=== PATIENT | male | born 1995 | race Caucasian/White ===

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

== ENCOUNTER → 2021-06-09 | Outpatient (REF) | payer OTHER ==
[2021-06-09 15:59] LABS: BASO % 0.4 % (0.0-1.0); EOS # 0.1 10^3/uL (0.0-0.5); EOS % 2.4 % (0.0-3.0); HEMATOCRIT 44.6 % (42.0-52.0); HEMOGLOBIN 13.4 g/dl (13.5-17.5); LYMPH # 1.7 10^3/uL (1.5-5.0); LYMPH % 31.5 % (24.0-44.0); MEAN CORPUSCULAR HEMOGLOBIN 19.5 pg (27.0-33.0); MEAN CORPUSCULAR VOLUME 64.8 fl (80.0-96.0); MONO # 0.5 10^3/uL (0.0-0.8); MONO % 9.4 % (2.0-8.0); NEUTROPHILS # 3.1 10^3/uL (1.5-8.5); NEUTROPHILS % 55.9 % (36.0-66.0); PLATELET COUNT, AUTOMATED 263 10^3/uL (150-450); RED BLOOD COUNT 6.88 10^6/uL (4.30-6.10); WHITE BLOOD COUNT 5.5 10^3/uL (4.0-10.0)
[2021-06-09 16:32] LABS: ALBUMIN 4.2 GM/DL (3.2-5.2); ALT/SGPT 136 U/L (12-78); BILIRUBIN,TOTAL 0.8 MG/DL (0.2-1.0); BLOOD UREA NITROGEN 12 MG/DL (7-18); CALCIUM LEVEL 9.2 MG/DL (8.5-10.1); CARBON DIOXIDE LEVEL 28 MEQ/L (21-32); CHLORIDE LEVEL 104 MEQ/L (98-107); CHOLESTEROL LEVEL 208 MG/DL (<200); CHOLESTEROL RISK RATIO 7.703 (<5); CREATININE FOR GFR 0.77 MG/DL (0.70-1.30); GLOMERULAR FILTRATION RATE > 60.0 (>60); GLUCOSE, FASTING 88 MG/DL (70-100); HDL CHOLESTEROL 27 MG/DL (>40); LDL CHOLESTEROL 102 MG/DL (<100); NON-HDL-C 181 MG/DL; POTASSIUM SERUM 4.7 MEQ/L (3.5-5.1); SODIUM LEVEL 137 MEQ/L (136-145); TOTAL PROTEIN 7.8 GM/DL (6.4-8.2); TRIGLYCERIDES LEVEL 396 MG/DL (<150)
== END ==
LOC: M SFHCCLAY 10:30
PROVIDERS: ATTEND Family Medicine
DX: E78.2 Mixed hyperlipidemia (principal); Z83.2 Family history of diseases of the blood and blood-forming organs and certain disorders involving the immune mechanism

== ENCOUNTER → 2023-04-22 | Outpatient (REF) | payer OTHER, BC | LOC: M SFHCCLAY 15:30 | PROVIDERS: ATTEND Family Medicine | DX: Z02.4 Encounter for examination for driving license (principal) ==

== ENCOUNTER → 2024-05-01 | Outpatient (REF) | payer OTHER ==
[2024-05-01 15:00] LABS: HEMATOCRIT 44.3 % (42.0-52.0); HEMOGLOBIN 13.3 g/dl (13.5-17.5); MEAN CORPUSCULAR HEMOGLOBIN 19.3 pg (27.0-33.0); MEAN CORPUSCULAR VOLUME 64.4 fl (80.0-96.0); PLATELET COUNT, AUTOMATED 274 10^3/uL (150-450); RED BLOOD COUNT 6.88 10^6/uL (4.30-6.10)
[2024-05-01 15:32] LABS: FREE T4 1.16 NG/DL (0.89-1.76)
[2024-05-01 15:36] LABS: IRON (FE) 156 UG/DL (65-175)
[2024-05-01 15:37] LABS: ALBUMIN 4.2 G/DL (3.2-5.2); ALKALINE PHOSPHATASE 61 U/L (40-129); ALT/SGPT 104 U/L (7.0-40); AST/SGOT 46 U/L (<34); BILIRUBIN,TOTAL 0.8 MG/DL (0.3-1.2); BLOOD UREA NITROGEN 11 MG/DL (9-23); CALCIUM LEVEL 9.6 MG/DL (8.5-10.1); CARBON DIOXIDE LEVEL 29 MMOL/L (20-31); CHLORIDE LEVEL 105 MMOL/L (98-107); CHOLESTEROL LEVEL 196 MG/DL (<200); CREATININE FOR GFR 0.74 MG/DL (0.70-1.30); GLOMERULAR FILTRATION RATE > 60.0 (>60); GLUCOSE, FASTING 100 MG/DL (60-100); HDL CHOLESTEROL 31.1 MG/DL (>40); LDL CHOLESTEROL 119.3 MG/DL (<100); NON-HDL-C 164.9 MG/DL; POTASSIUM SERUM 4.6 MMOL/L (3.5-5.1); SODIUM LEVEL 143 MMOL/L (136-145); TOTAL PROTEIN 7.6 G/DL (5.7-8.2); TRIGLYCERIDES LEVEL 228 MG/DL (<150)
== END ==
LOC: M SFHCCLAY 08:00
PROVIDERS: ATTEND Family Medicine
DX: R03.0 Elevated blood-pressure reading, without diagnosis of hypertension (principal); E78.2 Mixed hyperlipidemia; Z83.2 Family history of diseases of the blood and blood-forming organs and certain disorders involving the immune mechanism